=== PATIENT | female | born 1960 | race Caucasian/White ===

== ENCOUNTER → 2019-09-13 | Day surgery (SDC) | payer OTHER, BC ==
--- NOTE | 2019-09-11 11:35 | Diagnostic Imaging Report ---
Exam: KUB - 2 views Indication: Preoperative Comparison: KUB of 07/06/2012 Findings: Right lower pole renal calculi measure up to 4 mm. Calcific density overlying the left renal midpole measures up to 4 mm and may represent a renal calculus versus intraluminal bowel content. Nonobstructive bowel gas pattern. No free air. Status post cholecystectomy. No acute osseous injury. The visualized portions of the lungs are clear. Phleboliths in the left pelvis. Impression: Right lower pole renal calculi up to 4 mm. Possible left midpole 4mm calculus. Signed by: Yadiel Dutton MD on 09/11/2019 11:32 AM
[~2019-09-13] MED LIST: CEFTRIAXONE SOD 1 GM/NS 50 ML 50 ML IV ONE; DEXAMETHASONE SOD PHOS INJ 4 MG/ML VIAL ONE; EPHEDRINE SULFATE INJ 50 MG/ML VIAL ONE; FENTANYL CITRATE/PF 100MCG/2 ML INJ ONE; LIDOCAINE HCL 2% LOCAL INJ 5 ML SDV VIAL INJ ONE; MIDAZOLAM HCL 2 MG/2 ML VIAL ONE; MULTIVITAMINS1 EAC7 PO; ONDANSETRON HCL INJ 2MG/ML 2ML 2 MG/ML VIAL ONE; PROPOFOL IV EMULSION 10 MG/ML 20 ML VIAL ONE; SEVOFLURANE INHAL SOLN 250 ML PEN BTL ONE; SYNTHROID112 MCG PO; TAMOXIFEN CITRA10 MG PO; VITAMIN B-121000 MCG PO; VITAMIN D350 MCG PO
--- OUTSIDE RECORDS SUMMARY | 2019-09-13 05:47 | XMS REPORT ---
Author Author [facility] Organization [facility] Address Unknown Phone Unavailable Care Team Providers Care Director Of [employer] Work Name Role Phone TIARA NAGEL Unavailable Unavailable Payers Payer Name Policy Type Policy Number Effective Date Expiration D ate Problems This patient has no known problems. Allergies, Adverse Reactions, Alerts Allergy Name Allergy Type Status Severity Reaction(s) Onset Date Inacti ve Date Treating Clinician Comments No Known Allergies DA Active U 2017-12-12 00:00:00 Medications This patient has no known medications. Encounters Start Date/Time End Date/Time Encounter Type Admission Type [facility] Care Department Encounter ID 2019-07-16 16:20:00 2019-07-16 16:20:00 Outpatient [facility] MED [id number] 2018-10-31 09:29:00 2018-10-31 09:29:00 Outpatient [facility] URO [id number] Results Test Description Test Time Test Comments Text Results Atomic Results Result Comments ABDOMEN-1VIEW (KUB) 2019-09-11 11:30:00 [place] [id number] Patient Name: GRIS LOZANO MR #: [id number] : 1960 Age/Sex: 59/F Req #: [id number] Adm Physician: Ordered by: TIARA NAGEL MD Report #: [id number] Location: OR Room/Bed: Procedure: [id number] DX/ABDOMEN-1VIEW (KUB) Exam Date: 09/11/19 Exam Time: 0830 REPORT STATUS: Signed Exam: KUB - 2 views Indication: Preoperative Comparison: KUB of 07/06/2012 Findings: Right lower pole renal calculi measure up to 4 mm. Calcific density overlying the left renal midpole measures up to 4 mm and may represent a renal calculus versus intraluminal bowel content. Nonobstructive bowel gas pattern. No free air. Status post cholecystectomy. No acute osseous injury. The visualized portions of the lungs are clear. Phleboliths in the left pelvis. Impression: Right lower pole renal calculi up to 4 mm. Possible left midpole 4mm calculus. Signed by: Juanita Lassiter MD on 09/11/2019 11:32 AM Dictated By: JUNAITA LASSITER MD 113 Transcribed By: MAGUE on 09/11/19 1132 COPY TO: TIARA NAGEL MD SURGICAL SPECIMENS 2017-12-16 17:20:00 RUN DATE: 12/16/17 [facility] *LIVE* PAGE 1 RUN TIME: 1720 Specimen Inquiry RUN USER: INTERFACE PATIENT: GRIS LOZANO LOC: [facility] U #: [id number] AGE/SX: 57/F ROOM: RE12/13/17[facility] DR: Qing Hanley DO : 56 BED: DIS: STATUS: [facility] TLOC: SPEC #: [id number] RECD: 12/14/17 STATUS: GAVINO FRANDY #: [id number] JAMIE: 12/14/17 [facility] DR: Qing Hanley DO ENTERED: 12/16/17 SP TYPE: SURG SPEC OTHR DR: Santhosh Davila MD ORDERED: GM LEVEL 4 CODES: [id number] - ENDOMETRIUM, NO COPIES TO: Qing Hanley DO [address] [place] [address] [place] [id number] [facility] [address] [place] [address] PROCEDURES: GM LEVEL 4 (Incomplete) TISSUES: 1. ENDOMETRIUM, NOS - Endometrium, curettings FINAL DIAGNOSIS Endometrium, curettings: Stratified squamous epithelium representing cervix with scant endometrium, no malignancy seen. GROSS AND MICROSCOPIC GROSS EXAMINATION: Received in formalin labeled endometrial curettings is a 0.4 cm aggregate of mucin and tissue submitted in one cassette. MICROSCOPIC EXAMINATION: Sections of the "Endometrium, curettings" reveal changes of stratified squamous epithelium representing cervix and scant endometrial tissue. No evidence of dysplasia, hyperplasia, or carcinoma is seen. POST-OP DIAGNOSIS Cervical stenosis, post menopausal bleeding CONTINUED ON NEXT PAGE RUN DATE: 12/16/17 [facility] *LIVE* PAGE 2 RUN TIME: 1720 Specimen Inquiry RUN USER: INTERFACE SPEC #: [id number] PATIENT: GRIS LOZANO ANNE #[id number] (Continued) PRE-OP DIAGNOSIS Cervical stenosis, post menopausal bleeding REVIEWED BY: SANDY Signed SIGNATURE ON FILE Kiesha Mendoza MD 12/16/17 1720 END OF REPORT
[2019-09-13 08:20] VITALS: BP 124/74
--- NOTE | 2019-09-14 17:14 | Operative Report ---
DATE OF PROCEDURE: 09/13/2019 SURGEON: Naveen Mcdaniel MD PREOPERATIVE DIAGNOSIS: Right kidney stone. POSTOPERATIVE DIAGNOSIS: Right kidney stone. PROCEDURE PERFORMED: 1. Staged right-sided shock wave lithotripsy. 2. Supervision of fluoroscopy. ANESTHESIA: General. ESTIMATED BLOOD LOSS: Minimal. COMPLICATIONS: None. INDICATIONS: Ms. Whaley is a very pleasant 59-year-old female with a history of right renal calculus with intermittent symptoms. She and I had a long discussion about alternatives, risks, and benefits, nothing, shock wave lithotripsy, ureteroscopy, percutaneous surgery, and open surgery. She voiced understanding of the options, alternatives, risks, and benefits, and she has had good success with shock wave lithotripsy. She elected to proceed. PROCEDURE IN DETAIL: After informed consent was obtained, the patient was taken to the operative suite, placed supine on the operating table, underwent general anesthesia by Anesthesia Service. She was placed in supine position. Stone was localized in the X, Y, and Z planes. Treatment was performed per the treatment report. The patient tolerated the procedure well, transferred to the recovery room in excellent condition. Supervision of fluoroscopy: I was present for the entire procedure and supervised fluoroscopy. There was no radiologist present. Dosages per treatment report. Naveen Mcdaniel MD ES/MODL /[id number]
== END | disposition home or self-care (01) ==
LOC: OR 05:35
PROVIDERS: ATTEND Urology
DX: N20.0 Calculus of kidney (principal); R32 Unspecified urinary incontinence; N39.0 Urinary tract infection, site not specified; R35.1 Nocturia; I34.1 Nonrheumatic mitral (valve) prolapse; Z01.810 Encounter for preprocedural cardiovascular examination; Z01.812 Encounter for preprocedural laboratory examination; Z01.818 Encounter for other preprocedural examination; Z11.59 Encounter for screening for other viral diseases
CPT/HCPCS: 50590; 74018; 87635; 93005; J0696; J1100; J2001; J2250; J2405; J2704; J3010